=== PATIENT | male | born 1970 | race Caucasian/White ===

== ENCOUNTER 2021-08-29 13:57 | Outpatient (CLI) | payer BC, OTHER | END 2021-08-29 14:15 | LOC: SLEEP 13:57 | PROVIDERS: ATTEND Family Medicine | DX: G47.33 Obstructive sleep apnea (adult) (pediatric) (principal); I10 Essential (primary) hypertension | CPT/HCPCS: G0399 ==

== ENCOUNTER 2022-04-13 11:21 | Inpatient (IN) | payer OTHER ==
[2022-04-13] VITALS (11 sets, daily range): BP systolic 96–135; BP diastolic 58–86
[~2022-04-13] VITALS: Ht 165.1 cm; Wt 108.9 kg
[2022-04-13] MEDS ORDERED: fentaNYL INJ 100 MCG/2 ML AMP IVP ONE (11:45)
[2022-04-13] MEDS ORDERED: ONDANSETRON 4 MG/2 ML (SDV) Z0FRAN IVP ONE (11:45)
[2022-04-13] MEDS ORDERED: LACTATED RINGERS 1,000 ML IV ONE ×3 (11:45→18:41)
[2022-04-13 11:55] LABS: BASOPHILS # (AUTO) 0.1 10^3/uL (0.0-0.1); BASOPHILS % (AUTO) 0 % (0-10); EOSINOPHILS % (AUTO) 0 % (0-10); HEMATOCRIT 44 % (40-54); HEMOGLOBIN 14.8 g/dL (13.3-17.7); LYMPHOCYTES # (AUTO) 0.4 10^3/uL (1.0-4.0); LYMPHOCYTES % (AUTO) 2 % (12-44); MEAN CORPUSCULAR HEMOGLOBIN 32 pg (25-34); MEAN CORPUSCULAR HGB CONC 33 g/dL (32-36); MEAN CORPUSCULAR VOLUME 95 fL (80-99); MEAN PLATELET VOLUME 9.5 fL (9.0-12.2); MONOCYTES # (AUTO) 1.2 10^3/uL (0.0-1.0); MONOCYTES % (AUTO) 5 % (0-12); NEUTROPHILS # (AUTO) 21.8 10^3/uL (1.8-7.8); NEUTROPHILS % (AUTO) 93 % (42-75); PLATELET COUNT 353 10^3/uL (130-400); WHITE BLOOD COUNT 23.6 10^3/uL (4.3-11.0)
[2022-04-13 12:10] LABS: ALBUMIN 3.7 GM/DL (3.2-4.5); BAND NEUTROPHILS 0 %; BASOPHILS % (MANUAL) 0 %; BILIRUBIN,TOTAL 1.4 MG/DL (0.1-1.0); CALCIUM 9.6 MG/DL (8.5-10.1); CREATININE SERUM 1.42 MG/DL (0.60-1.30); EOSINOPHILS % (MANUAL) 0 %; LYMPHOCYTES % (MANUAL) 3 %; MAGNESIUM 2.6 MG/DL (1.6-2.4); MONOCYTES % (MANUAL) 7 %; NEUTROPHILS % (MANUAL) 90 %; POTASSIUM 4.1 MMOL/L (3.6-5.0); RBC MORPH NORMAL; TOTAL PROTEIN 7.4 GM/DL (6.4-8.2)
[2022-04-13 12:23] LABS: ERYTHROCYTE SEDIMENTATION RATE 21 MM/HR (0-30)
[2022-04-13] MEDS ORDERED: NS 100 ML (IVPB) BAG IV ONE (12:30)
[2022-04-13] MEDS ORDERED: IOHEXOL 350 MG/ML 100 ML (OMNIPAQUE 350) VIAL IV ONE (12:30)
[2022-04-13] MEDS ORDERED: HOLD METFORMIN - RECEIVED CONTRAST 20 ML VIAL IV SCH (12:30)
[2022-04-13] MEDS: CATHETER FLUSH 10 ML SYR IV PRN (12:48)
--- NOTE | 2022-04-13 13:02 | Diagnostic Imaging Report ---
PROCEDURE: CT abdomen and pelvis with contrast. TECHNIQUE: Multiple contiguous axial images were obtained through the abdomen and pelvis after administration of intravenous contrast. Auto Exposure Controls were utilized during the CT exam to meet ALARA standards for radiation dose reduction. All CT scans use one or more of the following dose optimizing techniques: automated exposure control, MA and/or KvP adjustment based on patient size and exam type or iterative reconstruction. INDICATION: Abdominal pain, Crohn's disease. FINDINGS: The lung bases are clear. The liver is unremarkable. The gallbladder is unremarkable. The portal vein is patent. The common duct is not dilated. The pancreas appears normal. T Spleen is not enlarged. The GE junction is unremarkable. The adrenals appear normal. The kidneys are unremarkable. The aorta and IVC appear normal. There is no mesenteric or retroperitoneal lymphadenopathy. There is thickening of the wall of the terminal ileum. There is no appreciable obstruction. There is colonic diverticulosis. There is no evidence of diverticulitis. There is a 4.5 cm mesenteric abscess in the right lower abdomen superior to the inflamed terminal ileum situated between small bowel loops. There is no retroperitoneal free air or free fluid. IMPRESSION: Right lower quadrant retroperitoneal abscess related to terminal ileitis. Uncomplicated diverticulosis of the colon. Dictated by: Dictated on workstation # [id number]
[2022-04-13] MEDS ORDERED: morphine INJ 10 MG/ML 1ML (SYR OR VIAL) IVP STA (13:07)
[2022-04-13] MEDS ORDERED: PIPERACILLIN SODIUM/TAZOBACTAM 4.5 GM in NS (IVPB) 100 ML IV ONE (13:15)
--- NOTE | 2022-04-13 13:41 | ED Abdominal Pain ---
General Chief Complaint: Abdominal/GI Problems Stated Complaint: CROHN'S FLAREUP Nursing Triage Note: PT AMB TO RM 6 W C/O CROHN'S FLARE UP X2 WEEKS, PT REPORTS ABD PAIN, N/V, CHILLS, AND DIAPHORESIS. PT A&OX4, LAST BM THIS AM. Source of Information: Patient Exam Limitations: No Limitations History of Present Illness Date Seen by Provider: Apr 13, 2022 Time Seen by Provider: 11:35 Initial Comments This 51-year-old gentleman with Crohn's disease presents to the emergency room with a "Crohn's flare" including abdominal pain, vomiting, and diarrhea for about the past 2 weeks. Shortly after onset he presented to the emergency room at [facility] where work-up was performed including CT scan. No emergent findings were reported to him and he was discharged home. He followed up with Dr. Shannon and was prescribed medication including prednisone. He has not had improvement. He has not had any fever. He reports diagnosis with Crohn's [place] [address] Connelly. He has had colonoscopies with Dr. Echols since then. He has a referral for medical management of Crohn's disease with Dr. Echols pending next year. He has not had consultation with a display and banner designer previously and has not been on any maintenance medications. He is afebrile but has a guarding on exam. He reports his stools have been watery and dark brown without allison bleeding. Urine has been dark and orange colored. Allergies and Home Medications Allergies Coded Allergies: No Known Drug Allergies (Unverified , 04/13/22) Patient Home Medication List Home Medication List Reviewed: Yes Review of Systems Review of Systems Constitutional: no symptoms reported EENTM: No Symptoms Reported Respiratory: No Symptoms Reported Cardiovascular: No Symptoms Reported Gastrointestinal: See HPI Genitourinary: See HPI Musculoskeletal: no symptoms reported Skin: no symptoms reported Psychiatric/Neurological: No Symptoms Reported Endocrine: No Symptoms Reported Hematologic/Lymphatic: No Symptoms Reported Past Tqxbhxj-Eewpmj-Yzkjmm Hx Patient Social History Tobacco Use?: No Use of E-Cig and/or Vaping dev: No Substance use?: No Alcohol Use?: Yes Alcohol Frequency: Once in a while Immunizations Up To Date Influenza Vaccine Up-to-Date: No; Not Current First/Initial COVID19 Vaccinat: 2020 Second COVID19 Vaccination Isak: 2020 Third COVID19 Vaccination Date: 2020 COVID19 Vaccine Customer Care Consultant: [place] Past Medical History Surgeries: Yes Abdominal (Colonoscopy, anal fistula) Respiratory: No Cardiac: No Neurological: No Reproductive Disorders: No Genitourinary: No Gastrointestinal: Yes Crohns Disease Musculoskeletal: No Endocrine: No HEENT: No Cancer: No Psychosocial: No Integumentary: No Physical Exam Vital Signs Vital Signs - First Documented 04/13/22 11:28 Temp 36.0 Pulse 92 Resp 20 B/P (MAP) 117/86 (96) Pulse Ox 96 O2 Delivery Room Air Capillary Refill : Less Than 3 Seconds Height/Weight/BMI Height: '" Weight: lbs. oz. kg; 39.00 BMI Method: General Appearance: WD/WN, mild distress HEENT: normal ENT inspection Neck: normal inspection Respiratory: lungs clear, normal breath sounds, no respiratory distress Cardiovascular: regular rate, rhythm, no edema, no murmur Gastrointestinal: abnormal bowel sounds (Decreased), distended, guarding, tenderness (Tenderness to percussion with guarding throughout, right greater than left) Extremities: normal inspection, no pedal edema Neurologic/Psychiatric: no motor/sensory deficits, alert, normal mood/affect, oriented x 3 Skin: normal color, warm/dry Focused Exam Lactate Level 04/13/22 13:40: Lactic Acid Level 0.99 Lactic Acid Level Laboratory Tests Test 04/13/22 13:40 Lactic Acid Level 0.99 MMOL/L (0.50-2.00) Progress/Results/Core Measures Results/Orders Lab Results Laboratory Tests Test 04/13/22 11:38 04/13/22 13:40 Range/Units White Blood Count 23.6 H 4.3-11.0 10^3/uL Red Blood Count 4.70 4.30-5.52 10^6/uL Hemoglobin 14.8 13.3-17.7 g/dL Hematocrit 44 40-54 % Mean Corpuscular Volume 95 80-99 fL Mean Corpuscular Hemoglobin 32 25-34 pg Mean Corpuscular Hemoglobin Concent 33 32-36 g/dL Red Cell Distribution Width 12.3 10.0-14.5 % Platelet Count 353 130-400 10^3/uL Mean Platelet Volume 9.5 9.0-12.2 fL Immature Granulocyte % (Auto) 1 % Neutrophils (%) (Auto) 93 H 42-75 % Lymphocytes (%) (Auto) 2 L 12-44 % Monocytes (%) (Auto) 5 0-12 % Eosinophils (%) (Auto) 0 0-10 % Basophils (%) (Auto) 0 0-10 % Neutrophils # (Auto) 21.8 H 1.8-7.8 10^3/uL Lymphocytes # (Auto) 0.4 L 1.0-4.0 10^3/uL Monocytes # (Auto) 1.2 H 0.0-1.0 10^3/uL Eosinophils # (Auto) 0.0 0.0-0.3 10^3/uL Basophils # (Auto) 0.1 0.0-0.1 10^3/uL Immature Granulocyte # (Auto) 0.2 H 0.0-0.1 10^3/uL Neutrophils % (Manual) 90 % Lymphocytes % (Manual) 3 % Monocytes % (Manual) 7 % Eosinophils % (Manual) 0 % Basophils % (Manual) 0 % Band Neutrophils 0 % Blood Morphology Comment NORMAL Erythrocyte Sedimentation Rate 21 0-30 MM/HR Prothrombin Time 15.7 H 12.2-14.7 SEC INR Comment 1.2 0.8-1.4 Activated Partial Thromboplast Time 48 H 24-35 SEC Sodium Level 139 135-145 MMOL/L Potassium Level 4.1 3.6-5.0 MMOL/L Chloride Level 100 98-107 MMOL/L Carbon Dioxide Level 24 21-32 MMOL/L Anion Gap 15 H 5-14 MMOL/L Blood Urea Nitrogen 31 H 7-18 MG/DL Creatinine 1.42 H 0.60-1.30 MG/DL Estimat Glomerular Filtration Rate 60 BUN/Creatinine Ratio 22 Glucose Level 159 H 70-105 MG/DL Calcium Level 9.6 8.5-10.1 MG/DL Corrected Calcium 9.8 8.5-10.1 MG/DL Magnesium Level 2.6 H 1.6-2.4 MG/DL Total Bilirubin 1.4 H 0.1-1.0 MG/DL Aspartate Amino Transf (AST/SGOT) 32 5-34 U/L Alanine Aminotransferase (ALT/SGPT) 65 H 0-55 U/L Alkaline Phosphatase 182 H 40-136 U/L C-Reactive Protein High Sensitivity 23.43 H 0.00-0.50 MG/DL Total Protein 7.4 6.4-8.2 GM/DL Albumin 3.7 3.2-4.5 GM/DL Lipase 6 L 8-78 U/L Lactic Acid Level 0.99 0.50-2.00 MMOL/L My Orders Orders - MICHAEL HUA MD Fentanyl Inj (Sublimaze Injection) (04/13/22 11:45) Cbc With Automated Diff (04/13/22 11:44) Comprehensive Metabolic Panel (04/13/22 11:44) Hs C Reactive Protein (04/13/22 11:44) Magnesium (04/13/22 11:44) Ua Culture If Indicated (04/13/22 11:44) Stool Culture (04/13/22 11:44) Fecal Wbc (04/13/22 11:44) Erythrocyte Sedimentation Rate (04/13/22 11:44) Fecal Occult Bedside (04/13/22 11:44) Ed Iv/Invasive Line Start (04/13/22 11:44) Lactated Ringers (Lr 1000 Ml Iv Solution (04/13/22 11:45) Ondansetron Injection (Zofran Injectio (04/13/22 11:45) Manual Differential (04/13/22 11:38) Ct Abdomen/Pelvis W (04/13/22 12:18) Iohexol Injection (Omnipaque 350 Mg/Ml 1 (04/13/22 12:30) Received Contrast (Hold Metformin- Contr (04/13/22 12:30) Ns (Ivpb) (Sodium Chloride 0.9% Ivpb Bag (04/13/22 12:30) Sodium Chloride Flush (Catheter Flush Sy (04/13/22 12:30) Blood Culture (04/13/22 12:50) Protime With Inr (04/13/22 12:50) Partial Thromboplastin Time (04/13/22 12:50) Vital Signs Adult Sepsis Patie Q15M (04/13/22 12:50) Remove Rings In Anticipation O (04/13/22 12:50) Lactic Acid Analyzer (04/13/22 12:50) Lipase (04/13/22 12:50) Morphine Injection (Morphine Injection (04/13/22 13:07) Piperacillin Sodium/Tazobactam (Zosyn Vi (04/13/22 13:15) Vancomycin Injection (Vancomycin Injecti (04/13/22 13:15) Lactated Ringers (Lr 1000 Ml Iv Solution (04/13/22 13:45) Promethazine Injection (Phenergan Injec (04/13/22 14:15) Pantoprazole Injection (Protonix Injecti (04/13/22 14:15) Medications Given in ED Current Medications Medications Dose Ordered Sig/Victorina Route Start Time Stop Time Status Last Admin Dose Admin Fentanyl Citrate 75 mcg ONCE ONCE IVP 04/13/22 11:45 04/13/22 11:47 DC 04/13/22 11:57 75 MCG Iohexol 100 ml ONCE ONCE IV 04/13/22 12:30 04/13/22 12:31 DC 04/13/22 12:48 80 ML Lactated Ringer's 1,000 ml @ 0 mls/hr Q0M ONCE IV 04/13/22 11:45 04/13/22 11:47 DC 04/13/22 11:56 0 MLS/HR Lactated Ringer's 1,000 ml @ 0 mls/hr Q0M ONCE IV 04/13/22 13:45 04/13/22 13:46 DC 04/13/22 13:43 0 MLS/HR Ondansetron HCl 8 mg ONCE ONCE IVP 04/13/22 11:45 04/13/22 11:47 DC 04/13/22 11:56 8 MG Pantoprazole 40 mg ONCE ONCE IV 04/13/22 14:15 04/13/22 14:16 DC 04/13/22 14:48 40 MG Piperacillin Sod/ Tazobactam Sod 4.5 gm/Sodium Chloride 100 ml @ 200 mls/hr ONCE ONCE IV 04/13/22 13:15 04/13/22 13:44 DC 04/13/22 14:19 200 MLS/HR Promethazine HCl 25 mg ONCE ONCE IVP 04/13/22 14:15 04/13/22 14:16 DC 04/13/22 14:48 25 MG Sodium Chloride 10 ml NEEDED PRN IV 04/13/22 12:30 04/13/22 12:48 10 ML Sodium Chloride 100 ml ONCE ONCE IV 04/13/22 12:30 04/13/22 12:31 DC 04/13/22 12:48 80 ML Vital Signs/I&O 04/13/22 11:28 Temp 36.0 Pulse 92 Resp 20 B/P (MAP) 117/86 (96) Pulse Ox 96 O2 Delivery Room Air Blood Pressure Mean: 96 Progress Progress Note #1: Time: 13:41 Progress Note Symptoms were treated with fentanyl, morphine, and Zofran. IV fluids were started. Patient had an acute appearing abdomen on exam. CT was obtained. Abscess was identified and Dr. Wylie was consulted. He will review the CT himself and render an opinion on how to proceed. In the meantime, blood cultures and lactic acid are being obtained prior to starting Zosyn and vancomycin. Systolic blood pressure has remained above 90 but is soft. A second liter of IV fluid is infusing. Progress Note #2: Time: 14:[address] Wylie has reviewed CT imaging and been to the emergency room to evaluate the patient. Plan is to take him directly to the OR to surgically address his abdominal abscess. I discussed CODE STATUS with the patient elects to be full code. Symptoms are being additionally treated with Phenergan and morphine. Diagnostic Imaging Diagonstic Imaging: CT Plain Films/CT/US/NM/MRI: abdomen, pelvis Comments CT abdomen pelvis viewed by me and report reviewed. See report below: NAME: MYLA HUNTLEY [facility] REC#: [id number] PT STATUS: REG ER : 1970 PHYSICIAN: MICHAEL HUA MD ADMIT DATE: 04/13/22/ER Draft Date of Exam:04/13/22 CT ABDOMEN/PELVIS W PROCEDURE: CT abdomen and pelvis with contrast. TECHNIQUE: Multiple contiguous axial images were obtained through the abdomen and pelvis after administration of intravenous contrast. Auto Exposure Controls were utilized during the CT exam to meet ALARA standards for radiation dose reduction. All CT scans use one or more of the following dose optimizing techniques: automated exposure control, MA and/or KvP adjustment based on patient size and exam type or iterative reconstruction. INDICATION: Abdominal pain, Crohn's disease. FINDINGS: The lung bases are clear. The liver is unremarkable. The gallbladder is unremarkable. The portal vein is patent. The common duct is not dilated. The pancreas appears normal. T Spleen is not enlarged. The GE junction is unremarkable. The adrenals appear normal. The kidneys are unremarkable. The aorta and IVC appear normal. There is no mesenteric or retroperitoneal lymphadenopathy. There is thickening of the wall of the terminal ileum. There is no appreciable obstruction. There is colonic diverticulosis. There is no evidence of diverticulitis. There is a 4.5 cm mesenteric abscess in the right lower abdomen superior to the inflamed terminal ileum situated between small bowel loops. There is no retroperitoneal free air or free fluid. IMPRESSION: Right lower quadrant retroperitoneal abscess related to terminal ileitis. Uncomplicated diverticulosis of the colon. Dictated on workstation # [id number] Dict: 04/13/22 1250 Trans: 04/13/22 1302 [id number] Interpreted by: SANDY GU MD Departure Communication (Admissions) Time/Spoke to Admitting Phy: 13:30 Dr. Wylie Impression Primary Impression: Abdominal abscess Additional Impressions: Sepsis Qualified Codes: A41.9 - Sepsis, unspecified organism Crohn's disease Qualified Codes: K50.914 - Crohn's disease, unspecified, with abscess Disposition: ADMITTED INPATIENT Condition: Stable Admissions Decision to Admit Reason: Admit from ER (General) Decision to Admit/Date: Apr 13, 2022 Time/Decision to Admit Time: 13:30 Departure-Patient Inst. Referrals: JAQUELINE SHANNON DO (PCP/Family) Primary Care Physician Copy Copies To 1: JAQUELINE SHANNON JOSHUA T MD Apr 13, 2022 13:41
[2022-04-13 14:01] LABS: INR 1.2 (0.8-1.4); PROTHROMBIN TIME PATIENT 15.7 SEC (12.2-14.7)
[2022-04-13] MEDS ORDERED: PANTOPRAZOLE 40 MG (PROTONIX) VIAL IV ONE (14:15)
[2022-04-13] MEDS ORDERED: PROMETHAZINE INJ 25 MG/ML (PHENERGAN) AMP IVP ONE ×2 (14:15→18:30)
[2022-04-13] MEDS: VANCOMYCIN INJECTION 1,000 MG in NS (IVPB) 250 ML IV SCH ×2 (14:48→15:51)
[2022-04-13] MEDS ORDERED: LIDOCAINE/EPI 1%-1:100,000 (XYLOCAINE) 10 ML ONE (14:58)
[2022-04-13] MEDS ORDERED: ROCURONIUM 10 MG/ML 5 ML SYRINGE IV ONE (15:04)
[2022-04-13] MEDS ORDERED: proPOfol 200 MG/20 ML (DIPRIVAN) VIAL IV ONE (15:04)
[2022-04-13] MEDS ORDERED: ONDANSETRON 4 MG/2 ML (SDV) Z0FRAN ONE (15:04)
[2022-04-13] MEDS ORDERED: SUCCINYLCHOLINE INJ 100 MG/5 ML SYR/VIAL ONE (15:04)
[2022-04-13] MEDS ORDERED: fentaNYL INJ 100 MCG/2 ML AMP ONE ×2 (15:04→16:45)
[2022-04-13] MEDS ORDERED: LIDOCAINE PF 2% 5 ML (XYLOCAINE) VIAL ONE (15:04)
[2022-04-13] MEDS ORDERED: MIDAZOLAM 2 MG/2 ML (VERSED) VIAL ONE (15:04)
--- NOTE | 2022-04-13 15:09 | Consultation - Surgery ---
DANA ZAPATA 04/13/22 1509: History of Present Illness History of Present Illness Patient Consulted On(katarina/time) 04/13/22 15:02 Date Seen by Provider: Apr 13, 2022 Time Seen by Provider: 15:03 Reason for Visit: Abdominal Pain History of Present Illness 51 year old male with a past medical history presented to [facility] ER with a chief complaint of abdominal pain believed to be related to a crohn's flare that had been on going for two weeks. Pain started in the right upper quadrant and has since radiation to RLQ and LLQ. Describes the pain as sharp and stabbing. Patient also endorses nausea, vomiting, chills, body aches, and alternating diarrhea/constipation. Patient has done two rounds of oral steroids from his PCP in an attempt to calm this flare-up down, with no success. Patient states that as of now, everything makes his pain worse; movement, eating, drinking. Patient was dx with Crohn's in 2002 and has had occasional flare-ups since then. Patient is not on any maintenance medications for Crohn's and does not see a provider for this issue due to cost of the medications. Patient states that this is the worst flare-up he has ever experienced. In the ER, patient underwent CT scan which showed a retroperitoneal abscess and terminal ileitis. Patient was started on vanc and zosyn, given an LR bolus, and started on pain control. Patient has not had anything to eat today. States his last fluid intake was before he came to the ER at ~1130. Allergies and Home Medications Allergies Coded Allergies: No Known Drug Allergies (Unverified , 04/13/22) Patient Home Medication List Home Medication List Reviewed: Yes Past Xsowshn-Kavdww-Uvhdrx Hx Patient Social History Smoking Status: Never a Smoker Type Used: Smokeless Tobacco Recent Hopitalizations: Yes (For same issue) Alcohol Use?: Yes Have you traveled recently?: No Surgeries History of Surgeries: Yes Surgeries: Abdominal (Colonoscopy, anal fistula), Appendectomy, Orthopedic (lumbar spine) Respiratory History of Respiratory Disorde: No Cardiovascular History of Cardiac Disorders: No Neurological History of Neurological Disord: No Reproductive System Hx Reproductive Disorders: No Genitourinary History of Genitourinary Disor: No Gastrointestinal History of Gastrointestinal Di: Yes Gastrointestinal Disorders: Crohns Disease Musculoskeletal History of Musculoskeletal Dis: No Endocrine History of Endocrine Disorders: No HEENT History of HEENT Disorders: No Cancer History of Cancer: No Psychosocial History of Psychiatric Problem: No Integumentary History of Skin or Integumenta: No Family Medical History Significant Family History: Heart Disease, Cancer, Diabetes Review of Systems-General Constitutional: chills, diaphoresis, dizziness Respiratory: cough, short of breath Cardiovascular: No chest pain, No edema, No palpitations Gastrointestinal: RUQ, RLQ, LLQ, abdominal pain, diarrhea, nausea, vomiting Genitourinary: No decreased output, No hematuria Psychiatric/Neurological: Headache Physical Exam-General Problems Physical Exam Vital Signs Vital Signs - First Documented 04/13/22 11:28 Temp 36.0 Pulse 92 Resp 20 B/P (MAP) 117/86 (96) Pulse Ox 96 O2 Delivery Room Air Capillary Refill : Less Than 3 Seconds General Appearance: WD/WN, mild distress HEENT: PERRL/EOMI Respiratory: chest non-tender, lungs clear, normal breath sounds, no respiratory distress, no accessory muscle use Cardiovascular: regular rate, rhythm, no murmur Gastrointestinal: distended, guarding (RLQ), tenderness (RUQ, RLQ, LLQ) Extremities: non-tender, no pedal edema Neurologic/Psychiatric: alert, normal mood/affect, oriented x 3 Skin: normal color, warm/dry Lymphatic: no adenopathy Data Review Labs Laboratory Tests 04/13/22 11:38: White Blood Count 23.6H, Red Blood Count 4.70, Hemoglobin 14.8, Hematocrit 44, Mean Corpuscular Volume 95, Mean Corpuscular Hemoglobin 32, Mean Corpuscular Hemoglobin Concent 33, Red Cell Distribution Width 12.3, Platelet Count 353, Mean Platelet Volume 9.5, Immature Granulocyte % (Auto) 1, Neutrophils (%) (Auto) 93H, Lymphocytes (%) (Auto) 2L, Monocytes (%) (Auto) 5, Eosinophils (%) (Auto) 0, Basophils (%) (Auto) 0, Neutrophils # (Auto) 21.8H, Lymphocytes # (Auto) 0.4L, Monocytes # (Auto) 1.2H, Eosinophils # (Auto) 0.0, Basophils # (Auto) 0.1, Immature Granulocyte # (Auto) 0.2H, Neutrophils % (Manual) 90, Lymphocytes % (Manual) 3, Monocytes % (Manual) 7, Eosinophils % (Manual) 0, Basophils % (Manual) 0, Band Neutrophils 0, Blood Morphology Comment NORMAL, Erythrocyte Sedimentation Rate 21, Prothrombin Time 15.7H, INR Comment 1.2, Activated Partial Thromboplast Time 48H, Sodium Level 139, Potassium Level 4.1, Chloride Level 100, Carbon Dioxide Level 24, Anion Gap 15H, Blood Urea Nitrogen 31H, Creatinine 1.42H, Estimat Glomerular Filtration Rate 60, BUN/Creatinine Ratio 22, Glucose Level 159H, Calcium Level 9.6, Corrected Calcium 9.8, Magnesium Level 2.6H, Total Bilirubin 1.4H, Aspartate Amino Transf (AST/SGOT) 32, Alanine Aminotransferase (ALT/SGPT) 65H, Alkaline Phosphatase 182H, C- Reactive Protein High Sensitivity 23.43H, Total Protein 7.4, Albumin 3.7, Lipase 6L 04/13/22 13:40: Lactic Acid Level 0.99 Assessment/Plan Assessment/Plan Assessment/Plan Sepsis Retroperitoneal abscess vs Bowel Perforation vs Infectious source Crohn's disease Elevated Creatinine Plan NPO IV Vanc and Zosyn IVF replacement w/ LR Pain control Discussed CT findings and possibility of surgery with patient. Patient is open to surgery and would just like to feel better. Discussed various different surgical techniques that may take place. Starting with diagnostic laparotomy and transitioning to laparoscopic or open repair. Patient understood all risks and adverse outcomes discussed and still wished to proceed with surgery. Planning on a Diagnostic Laparotomy with possible open and all other indicated procedures. ANGELO DUARTE DO 04/13/22 1602: History of Present Illness History of Present Illness Time Seen by Provider: 14:27 History of Present Illness Surgery asked to consult regarding intra-abdominal abscess. HPI per ED: This 51-year-old gentleman with Crohn's disease presents to the emergency room with a "Crohn's flare" including abdominal pain, vomiting, and diarrhea for about the past 2 weeks. Shortly after onset he presented to the emergency room at [place] where work-up was performed including CT scan. No emergent findings were reported to him and he was discharged home. He followed up with Dr. Shannon and was prescribed medication including prednisone. He has not had improvement. He has not had any fever. He reports diagnosis with Crohn's disease in [address] Connelly. He has had colonoscopies with Dr. Echols since then. He has a referral for medical management of Crohn's disease with Dr. Echols pending next year. He has not had consultation with a step finisher previously and has not been on any maintenance medications. He is afebrile but has a guarding on exam. He reports his stools have been watery and dark brown without allison bleeding. Urine has been dark and orange colored. Pt states he didn't have insurance and that is why he has never "treated his Crohn's". states usually he controls his diet and that controls the "flare-ups". Pain is 8 out of 10, was 10 out of 10 before pain meds. Allergies and Home Medications Allergies Coded Allergies: No Known Drug Allergies (Unverified , 04/13/22) Patient Home Medication List Home Medication List Reviewed: Yes Past Qsisdmq-Rvhlti-Mzesla Hx Patient Social History Smoking Status: Never a Smoker Type Used: Smokeless Tobacco Recent Hopitalizations: Yes (For same issue) Alcohol Use?: Yes Surgeries History of Surgeries: Yes Surgeries: Abdominal (Colonoscopy, anal fistula), Appendectomy, Orthopedic (lumbar spine) Respiratory History of Respiratory Disorde: No Cardiovascular History of Cardiac Disorders: No Neurological History of Neurological Disord: No Reproductive System Hx Reproductive Disorders: No Genitourinary History of Genitourinary Disor: No Gastrointestinal History of Gastrointestinal Di: Yes Gastrointestinal Disorders: Crohns Disease Musculoskeletal History of Musculoskeletal Dis: Yes Musculoskeletal Disorders: Degenerate Disk Disease, Back Injury Endocrine History of Endocrine Disorders: No HEENT History of HEENT Disorders: No Loss of Vision: Denies Hearing Impairment: Denies Cancer History of Cancer: No Psychosocial History of Psychiatric Problem: No Integumentary History of Skin or Integumenta: No Family Medical History Significant Family History: Heart Disease, Cancer, Diabetes Review of Systems-General Constitutional: chills, diaphoresis, dizziness EENTM: No blurred vision, No mouth swelling, No epistaxis Respiratory: cough, short of breath Cardiovascular: No chest pain, No edema, No palpitations Gastrointestinal: RUQ, RLQ, LLQ, abdominal pain, diarrhea, nausea, vomiting Genitourinary: No decreased output, No hematuria Musculoskeletal: back pain; No joint pain, No joint swelling Skin: No change in color, No change in hair/nails Psychiatric/Neurological: Denies Anxiety, Denies Depressed; Headache; Denies Seizure Physical Exam-General Problems Physical Exam General Appearance: WD/WN, moderate distress (secondary to pain) Eyes: Bilateral Eye PERRL, Bilateral Eye EOMI HEENT: pharynx normal; No scleral icterus (R), No scleral icterus (L); other (poor dentition) Neck: non-tender, supple Respiratory: chest non-tender, lungs clear, normal breath sounds, no respiratory distress, no accessory muscle use Cardiovascular: regular rate, rhythm, no murmur Gastrointestinal: distended, guarding (RLQ), tenderness (RUQ, RLQ, LLQ), hernia (small umbilical hernia) Extremities: non-tender, no pedal edema Neurologic/Psychiatric: alert, normal mood/affect, oriented x 3 Skin: normal color, warm/dry Lymphatic: no adenopathy (neck, axilla and groin) Data Review Radiology Date of Exam:04/13/22 CT ABDOMEN/PELVIS W PROCEDURE: CT abdomen and pelvis with contrast. TECHNIQUE: Multiple contiguous axial images were obtained through the abdomen and pelvis after administration of intravenous contrast. Auto Exposure Controls were utilized during the CT exam to meet ALARA standards for radiation dose reduction. All CT scans use one or more of the following dose optimizing techniques: automated exposure control, MA and/or KvP adjustment based on patient size and exam type or iterative reconstruction. INDICATION: Abdominal pain, Crohn's disease. FINDINGS: The lung bases are clear. The liver is unremarkable. The gallbladder is unremarkable. The portal vein is patent. The common duct is not dilated. The pancreas appears normal. T Spleen is not enlarged. The GE junction is unremarkable. The adrenals appear normal. The kidneys are unremarkable. The aorta and IVC appear normal. There is no mesenteric or retroperitoneal lymphadenopathy. There is thickening of the wall of the terminal ileum. There is no appreciable obstruction. There is colonic diverticulosis. There is no evidence of diverticulitis. There is a 4.5 cm mesenteric abscess in the right lower abdomen superior to the inflamed terminal ileum situated between small bowel loops. There is no retroperitoneal free air or free fluid. IMPRESSION: Right lower quadrant retroperitoneal abscess related to terminal ileitis. Uncomplicated diverticulosis of the colon. Dictated by: Dictated on workstation # [id number] Dict: 04/13/22 1250 Trans: 04/13/22 135 [id number] Interpreted by: SANDY GU MD Electronically signed by: SANDY GU MD 04/13/22 1358 Assessment/Plan Assessment/Plan Assessment/Plan Retroperitoneal abscess vs Bowel Perforation vs Infectious source Crohn's disease Elevated Creatinine Leukocytosis Plan NPO, IV Vanc and Zosyn, IVF replacement w/ LR, Pain control I reviewed the CT myself and discussed the case with ED physician. I had long discussion with pt and his regarding possibility of surgery; went over risks and complications not limited to pain, bleeding, infection, scar, damage to bowel and need for further procedure. Patient is open to surgery; because he has never had pain like this before and would just like to feel better. Discussed various different surgical possibility; would try least invasive to most invasive. IR drainage is not possible, will start diagnostic laparoscopy with possible laparotomy. We may be able to just drain or remove the abscess cavity, but may have to do small bowel resection or even SBR with removal of part of right colon. Patient understood all risks and adverse outcomes discussed and still wished to proceed with surgery. Will obtain consent. Supervisory-Addendum Brief Verification & Attestation Participated in pt care: history, MDM, physical Personally performed: exam, history, MDM, supervision of care Care discussed with: Medical Student Procedures: n/a Verification and Attestation of Medical Student E/M Service A medical student performed and documented this service. I then reviewed and verified all information documented by the medical student and made modific ations to such information, when appropriate. I personally performed a physical exam, medical decision making and then discussed any differences between the notes and made revisions as necessary to create one note. Angelo Duarte , 04/13/22 , 16:10 DANA ZAPATA Apr 13, 2022 15:09 ANGELO DUARTE DO Apr 13, 2022 16:02
[2022-04-13] MEDS: LACTATED RINGERS 1,000 ML IV PRN ×2 (16:06→18:46)
[2022-04-13] MEDS ORDERED: ROPIVACAINE 5MG/ML 30ML VIAL ONE (17:38)
[2022-04-13] MEDS ORDERED: NEOSTIGMINE (BLOXIVERZ ) 1 MG/1ML 10 ML VIAL ONE (17:46)
[2022-04-13] MEDS ORDERED: GLYCOPYRROLATE 0.2 MG/ML (ROBINUL) 2 ML VIAL ONE (17:46)
[2022-04-13] MEDS ORDERED: morphine INJ 10 MG/ML 1ML (SYR OR VIAL) ONE (17:52)
--- NOTE | 2022-04-13 18:03 | Progress Note-Post Operative ---
Post-Operative Progess Note Surgeon (s)/Processing Engineer (s) Surgeon ANGELO DUARTE DO Processing Engineer: Keena Pre-Operative Diagnosis Intra-abdominal abscess Post-Operative Diagnosis same with small bowel entrapment Procedure & Operative Findings Date of Procedure 04/13/22 Procedure Performed/Findings Diagnostic Laparoscopy, Laparotomy with small bowel resection and Ileo-Colonic anastomosis Anesthesia Type GET Estimated Blood Loss Estimated blood loss (mL): 300ml Specimens/Packing Specimens Removed abscess and small bowel ANGELO DUARTE DO Apr 13, 2022 18:03
[2022-04-13] MEDS ORDERED: SEVOFLURANE (ULTANE) 15 ML INHAL SOLN ONE (18:04)
[2022-04-13] MEDS ORDERED: RT-ALBUTEROL SULF 2.5 MG/3 ML PRE-MIX VIAL ONE (18:22)
[2022-04-13] MEDS ORDERED: RT-ALBUTEROL SULF 2.5 MG/3 ML PRE-MIX VIAL INH ONE (18:30)
[2022-04-13] MEDS ORDERED: morphine INJ 10 MG/ML 1ML (SYR OR VIAL) IVP ONE (18:30)
[2022-04-13] MEDS ORDERED: HYDROmorphone 2 MG/ML VIAL (DILAUDID) IV ONE (18:30)
[2022-04-13] MEDS ORDERED: ONDANSETRON 4 MG/2 ML (SDV) Z0FRAN IVP PRN (18:30)
[2022-04-13] MEDS: LACTATED RINGERS 1,000 ML IV SCH ×2 (18:48→20:07)
[2022-04-13] MEDS ORDERED: RT-ALBUTEROL SULF 2.5 MG/3 ML PRE-MIX VIAL INH PRN (20:00)
[2022-04-13] MEDS: PIPERACILLIN SODIUM/TAZOBACTAM 4.5 GM in NS (IVPB) 100 ML IV SCH (20:02)
[2022-04-13] MEDS ORDERED: ACETAMINOPHEN 325 MG TABLET PO PRN (20:30)
[2022-04-13] MEDS ORDERED: IBUPROFEN 600 MG (MOTRIN) TAB PO ONE (20:46)
[2022-04-13] MEDS: IBUPROFEN 600 MG (MOTRIN) TAB PO PRN (21:15)
[2022-04-14] VITALS (9 sets, daily range): BP systolic 96–145; BP diastolic 54–82
[2022-04-14] MEDS: HYDROcodone/APAP 5 MG/325 MG (LORTAB) TAB PO PRN ×6 (00:15→22:55)
[2022-04-14] MEDS: ONDANSETRON 4 MG/2 ML (SDV) Z0FRAN IVP PRN (00:15)
[2022-04-14] MEDS: LACTATED RINGERS 1,000 ML IV SCH ×3 (02:26→19:04)
[2022-04-14] MEDS: PIPERACILLIN SODIUM/TAZOBACTAM 4.5 GM in NS (IVPB) 100 ML IV SCH ×3 (03:18→21:15)
[2022-04-14] MEDS ORDERED: RT-ALBUTEROL SULF 2.5 MG/3 ML PRE-MIX VIAL INH ONE (07:00)
--- NOTE | 2022-04-14 07:05 | Anesthesia-General Post-Op ---
General Patient Condition Mental Status/LOC: Same as Preop Cardiovascular: Satisfactory Nausea/Vomiting: Absent Respiratory: Satisfactory Pain: Controlled Complications: Absent Post Op Complications Complications None Follow Up Care/Instructions Patient Instructions None needed. Anesthesia/Patient Condition Patient Condition Patient is doing well, no complaints, stable vital signs, no apparent adverse anesthesia problems. No complications reported per nursing. MAYCO MCKEON CRNA Apr 14, 2022 07:05
[2022-04-14] MEDS: PANTOPRAZOLE 40 MG (PROTONIX) VIAL IVP SCH (08:45)
--- NOTE | 2022-04-14 08:58 | Progress Note - Surgery ---
MARTHARAMSES Alfredo 04/14/22 0858: Subjective Date Seen by a Provider: Apr 14, 2022 Time Seen by a Provider: 07:50 Subjective/Events-last exam Pt is 51 yo M on POD day 1 from open laparotomy with abscess and partial small bowel resection and ilieocolonic anastomosis. Pt is calmly resting in bed this morning, and in no acute distress. States he is doing okay, except for his abdomen hurting primarily at the incision site. Dressing has some fluid seeping through this morning. State he is current having 10/10 pain. Pt has ron catheter in place with 75mL output. Pt states it was drained earlier this morning. Pt is on clear liquid diet and has been getting plenty of fluids. Has not had a bowel movement since procedure. Pt is not ambulating at this time. He is wearing nasal cannula 2L O2 and is not having difficulty breathing. Has not been using IS and did not know it was on the table next to him. States he thinks he had a fever last night and was given ice packs which he does not need at this time. Review of Systems General: No Chills, No Night Sweats; Appetite (drinking plenty of fluids) HEENT: No Head Aches, No Visual Changes Pulmonary: No Dyspnea, No Cough Cardiovascular: No: Chest Pain, Palpitations, Edema Gastrointestinal: Abdominal Pain (Pain primarily at incision site); No: Nausea, Vomiting Genitourinary: No Dysuria, No Hematuria Musculoskeletal: No: shoulder pain, leg pain Neurological: No: Weakness, Numbness Focused Exam Lactate Level 04/13/22 13:40: Lactic Acid Level 0.99 Objective Exam Vital Signs Date Time Temp Pulse Resp B/P (MAP) Pulse Ox O2 Delivery O2 Flow Rate FiO2 04/14/22 07:57 36.3 56 18 102/66 (78) 97 Nasal Cannula 2.00 04/14/22 07:13 36.6 77 98 04/14/22 07:11 98 Nasal Cannula 2.00 04/14/22 05:55 77 100/54 (69) 04/14/22 04:01 36.6 62 20 96/60 (72) 97 Nasal Cannula 2.00 04/14/22 00:16 92 16 100/62 (75) 95 Nasal Cannula 2.00 04/13/22 23:47 37.0 89 18 96/65 (75) 95 OxyMask 2.00 04/13/22 20:15 95 OxyMask 3.00 04/13/22 20:10 39.0 122 16 102/58 (73) 93 OxyMask 2.00 04/13/22 20:00 94 OxyMask 2.00 04/13/22 19:46 36.8 117 21 107/67 (80) 95 OxyMask 2.00 04/13/22 19:36 36.8 87 98 04/13/22 19:05 36.8 20 122/72 (89) 98 OxyMask 2.00 04/13/22 19:05 OxyMask 2.00 04/13/22 19:00 20 118/68 (85) 97 OxyMask 2.00 04/13/22 18:52 OxyMask 2.00 04/13/22 18:50 18 115/66 (82) 95 OxyMask 2.00 04/13/22 18:48 OxyMask 2.00 04/13/22 18:40 18 117/65 (82) 97 OxyMask 4.00 04/13/22 18:36 OxyMask 6.00 04/13/22 18:34 OxyMask 6.00 04/13/22 18:30 18 123/76 (92) 96 OxyMask 6.00 04/13/22 18:26 99 OxyMask 6.00 04/13/22 18:20 20 132/83 (99) 100 OxyMask 6.00 04/13/22 18:20 OxyMask 6.00 04/13/22 18:10 37.2 22 135/86 (102) 98 OxyMask 6.00 04/13/22 18:10 OxyMask 6.00 04/13/22 15:55 67 18 116/78 99 Room Air 04/13/22 11:28 36.0 92 20 117/86 (96) 96 Room Air I & O 04/14/22 07:00 Intake Total 4270 ml Output Total 1125 ml Balance 3145 ml Capillary Refill : Less Than 3 Seconds General Appearance: No Apparent Distress, Obese HEENT: PERRL/EOMI; No Scleral Icterus (L), No Scleral Icterus (R) Neck: Non Tender, Supple Respiratory: Chest Non Tender, No Accessory Muscle Use, No Respiratory Distress Cardiovascular: Regular Rate, Rhythm, No Murmur, Normal Peripheral Pulses Peripheral Pulses: 2+ Dorsalis Pedis (R), 2+ Left Dors-Pedis (L), 2+ Radial Pulses (R), 2+ Radial Pulses (L) Gastrointestinal: distended, guarding (midline), tenderness (RUQ, but primarily at incision site), hernia (small umbilical hernia) Extremity: Non Tender, No Calf Tenderness Neurologic/Psychiatric: Alert, Oriented x3, bond analyst II-XII Norm as Tested Skin: Normal Color, Warm/Dry Results Lab Laboratory Tests 04/13/22 11:38: White Blood Count 23.6H, Red Blood Count 4.70, Hemoglobin 14.8, Hematocrit 44, Mean Corpuscular Volume 95, Mean Corpuscular Hemoglobin 32, Mean Corpuscular Hemoglobin Concent 33, Red Cell Distribution Width 12.3, Platelet Count 353, Mean Platelet Volume 9.5, Immature Granulocyte % (Auto) 1, Neutrophils (%) (Auto) 93H, Lymphocytes (%) (Auto) 2L, Monocytes (%) (Auto) 5, Eosinophils (%) (Auto) 0, Basophils (%) (Auto) 0, Neutrophils # (Auto) 21.8H, Lymphocytes # (Auto) 0.4L, Monocytes # (Auto) 1.2H, Eosinophils # (Auto) 0.0, Basophils # (Auto) 0.1, Immature Granulocyte # (Auto) 0.2H, Neutrophils % (Manual) 90, Lymphocytes % (Manual) 3, Monocytes % (Manual) 7, Eosinophils % (Manual) 0, Basophils % (Manual) 0, Band Neutrophils 0, Blood Morphology Comment NORMAL, Erythrocyte Sedimentation Rate 21, Prothrombin Time 15.7H, INR Comment 1.2, Activated Partial Thromboplast Time 48H, Sodium Level 139, Potassium Level 4.1, Chloride Level 100, Carbon Dioxide Level 24, Anion Gap 15H, Blood Urea Nitrogen 31H, Creatinine 1.42H, Estimat Glomerular Filtration Rate 60, BUN/Creatinine Ratio 22, Glucose Level 159H, Calcium Level 9.6, Corrected Calcium 9.8, Magnesium Level 2.6H, Total Bilirubin 1.4H, Aspartate Amino Transf (AST/SGOT) 32, Alanine Aminotransferase (ALT/SGPT) 65H, Alkaline Phosphatase 182H, C- Reactive Protein High Sensitivity 23.43H, Total Protein 7.4, Albumin 3.7, Lipase 6L 04/13/22 13:40: Lactic Acid Level 0.99 Assessment/Plan Assessment/Plan Assessment/Plan Retroperitoneal abscess vs Bowel Perforation vs Infectious source Crohn's disease Elevated Creatinine Leukocytosis Plan Clear liquid diet, IV Vanc and Zosyn, IVF replacement w/ LR, Pain control ANGELO DUARTE DO 04/14/22 1308: Subjective Time Seen by a Provider: :22 Subjective/Events-last exam Pt seen and examined, resting in bed but looks like he is trying not to move. States pain is 10 out of 10 and oral pain meds not helping much at all. Tolerating minimal clears, but is getting up to go to bathroom. Review of Systems General: No Chills, No Night Sweats Pulmonary: No Dyspnea, No Cough Cardiovascular: No: Chest Pain, Palpitations Gastrointestinal: Abdominal Pain (Pain primarily at incision site); No: Nausea, Vomiting Objective Exam General Appearance: Anxious, Obese Respiratory: Chest Non Tender, Lungs Clear, Normal Breath Sounds, No Accessory Muscle Use, No Respiratory Distress Cardiovascular: Regular Rate, Rhythm Gastrointestinal: distended, guarding (midline), tenderness (RUQ, but primarily at incision site) Extremity: No Calf Tenderness Neurologic/Psychiatric: Alert, Oriented x3 Assessment/Plan Assessment/Plan Assessment/Plan S/P Ex lap with SBR and Ileo-cecal anastomosis for Retroperitoneal abscess probable Bowel Perforation POD#1 Crohn's disease Elevated Creatinine Leukocytosis Plan Encourage increased PO intake, contineu Zosyn, IVF, Pain control - will add IV meds. Pt encouraged to ambulate more and use IS Supervisory-Addendum Brief Verification & Attestation Participated in pt care: history, MDM, physical Personally performed: exam, history, MDM, supervision of care Care discussed with: Medical Student Procedures: n/a Verification and Attestation of Medical Student E/M Service A medical student performed and documented this service. I then reviewed and verified all information documented by the medical student and made modifications to such information, when appropriate. I personally performed a physical exam, medical decision making and then discussed any differences between the notes and made revisions as necessary to create one note. Angelo Duarte , 04/14/22 , 13:07 RAMSES THOMAS Apr 14, 2022 08:58 ANGELO DUARTE DO Apr 14, 2022 13:08
[2022-04-14] MEDS ORDERED: ACET-2267 PO (12:43)
[2022-04-14] MEDS ORDERED: FAMO20TA5 PO (12:43)
[2022-04-14] MEDS ORDERED: IBUP-2185 PO (12:43)
[2022-04-14] MEDS: morphine INJ 4 MG/ML 1 ML (VIAL/SYRINGE) IVP PRN ×3 (14:01→18:59)
--- NOTE | 2022-04-14 16:19 | OPERATIVE REPORT ---
DATE OF SERVICE: 04/13/2022 PREOPERATIVE DIAGNOSIS: Intra-abdominal abscess. POSTOPERATIVE DIAGNOSIS: Intraabdominal abscess, pending pathology. PROCEDURES PERFORMED: Diagnostic laparoscopy switched to laparotomy with small bowel resection and ileocolonic or ileocecal anastomosis. SURGEON: Neo Wylie DO. COASTAL/HARBOR DEFENSE OFFICER: Dr. Brink. TYPE OF ANESTHESIA: General endotracheal tube. SPECIMENS: Abscess and portion of small bowel. ESTIMATED BLOOD LOSS: Approximately 300 mL. FLUIDS: Per anesthesia. POSTOPERATIVE CONDITION: Stable. INDICATIONS FOR PROCEDURE: The patient is a 51-year-old male, who had pain in the right lower quadrant and radiating to the back of the abdomen. He has a history of Crohn's, had a CT, which showed an intra-abdominal abscess. FINDINGS: The patient had intra-abdominal abscess with a small bowel closely adhered or attached to this area, needed to be removed. DESCRIPTION OF PROCEDURE: After informed consent was obtained, the patient was brought to the operating room and placed on the table in the supine position. He was sterilely prepped and draped in normal fashion. Local lidocaine was used to infiltrate the skin above the umbilicus, made an incision with an 11 blade, carried down through the skin into the subcutaneous tissue, then deepened down through the subcutaneous tissue with Bovie electrocautery down to the fascia. Fascia incised with electrocautery, bluntly into the abdomen swept finger and placed 11 mm trocar port under direct visualization, creating pneumoperitoneum, could see inflammation in the right lower quadrant. This was noted, placed another 5 mm port in the midline just above the suprapubic area. Using local lidocaine, an 11 blade for stab incision, a VersaStep system, all done under direct visualization, broke the adhesions up a little bit to pull this apart. It was then attached to the abdominal wall, used a LigaSure to come across this attachment, clamping, coagulating and transecting in this fashion, freeing this up, attempted to move this around, it was very stuck and at this point, I elected to open, increase the incision from the supraumbilical incision down to the incision on the lower portion of the abdomen. Using Bovie electrocautery down through the skin into the subcutaneous tissue, then deepened down to subcutaneous tissue to the fascia. Fascia incised protected the intestines from my hand, did have to go up a little bit more superior as well to get access, began trying to dissect this out. It was very stuck down, had to take the adhesions down with blunt dissection as well as Bovie electrocautery, freeing this up, trying to free up the small intestine and trying to determine where it was attached. The mesentery of the small intestine was very stuck down into the pelvis. While freeing this up, did get a little bit of bleeding from the mesentery. At this point, I elected to go distal to this abscess and entrapped a small bowel, made a defect in the mesentery bluntly and then placed a DELORES-75 across clamping and then holding for 30 seconds, then transecting, went above this mass and then tangled small bowel to an area that was clean and did another defect in the mesentery with Bovie electrocautery as well as blunt dissection. I came across another DELORES-75 clamp and then transected this and then started taking this whole area out en bloc using the LigaSure to come across the mesentery, clamping, coagulating and transecting and in a stepwise fashion removing this abscess that we did not get into and the entangled and entrapped small bowel. This was removed, passed off table. This also stopped the bleeding from the mesentery. At this time, we then copiously irrigated with warm normal saline and suctioned this out, freed up the ascending colon along the pericolic gutter by using Bovie electrocautery to free this up and then gently pulled this into the center. I then elected to do an ileocecal anastomosis, made a small defect in the antimesenteric border of the small bowel and then a defect in the tinea with the Bovie electrocautery, placed one side of the DELORES-73, either side of these clamped together. They were creating a [id number] functional end-to-end anastomosis of the ileum and the cecum, fired this, then grasped the edges with Babcocks and then used a TA60 to come across and close this hole. There was one small opening that was missed. This was sutured closed with 3-0 Vicryl, two [id number] and then tied these around a piece of omentum as a patch, copiously irrigated. There was no leakage after this, changed gloves, irrigated some more, looked around, suctioned this out. There was no spillage of any fecal material into the abdominal cavity. There was no bleeding at this point. Dropped this back down into the abdomen and then placed the omentum over the top of this and then elected to close the incision with a #1 double stranded PDS suture running from the inferior portion to the superior portion, tied to itself. Then, we irrigated the incision with saline and then closed the skin with cm. Area was clean and dry, dressing placed. The patient tolerated the procedure. He was transferred to recovery room in stable condition. Sponge and needle counts were correct at the end of the case. Job ID: [id number] DocumentID: [id number] Dictated Date: 04/14/2022 10:11:05 Vb Net Programmer Date: 04/14/2022 16:17:00 Dictated By: DO ZAHRAA SHAVER
[2022-04-14] MEDS ORDERED: ENOXAPARIN 40 MG/0.4 ML (LOVENOX) SYR SC SCH (19:30)
[2022-04-14] MEDS: IBUPROFEN 600 MG (MOTRIN) TAB PO PRN (21:21)
[2022-04-14] MEDS: CATHETER FLUSH 10 ML SYR IV PRN (21:22)
[2022-04-15 03:33] VITALS: BP 111/66
[2022-04-15] MEDS: morphine INJ 4 MG/ML 1 ML (VIAL/SYRINGE) IVP PRN ×2 (06:31→08:59)
[2022-04-15] MEDS: PIPERACILLIN SODIUM/TAZOBACTAM 4.5 GM in NS (IVPB) 100 ML IV SCH ×3 (06:33→19:53)
[2022-04-15 07:48] VITALS: BP 135/80
--- NOTE | 2022-04-15 07:51 | Progress Note - Surgery ---
MARTHARAMSES Alfredo 04/15/22 0751: Subjective Date Seen by a Provider: Apr 15, 2022 Time Seen by a Provider: 07:18 Subjective/Events-last exam Pt is 51 yo M on POD#2 from small bowel resection. He s sitting comfortably in bed this morning in no acute distress. States his pain is better controlled today, rating it at 8/10. He has gotten up multiple times from bed to use the bathroom and walking about the room. States he has some shortness of breath on exertion. He is using his incentive spirometer. Is on room air. His ron catheter is out. States he has been voiding but not had a bowel movement. As of this morning, he has not passed gas. Pt is tolerating clear liquid diet of water and Sprite. States drinking Powerade is currently too much for him. Pt's wound dressing has blood and serosanginous fluid partially leaking through. However, dressing is still dry and intact. Nurse marked borders of fluid on dressing this morning. Review of Systems General: Chills, Fatigue, Other (diaphoresis (after ambulation)) HEENT: No Head Aches, No Visual Changes Pulmonary: Dyspnea (on exertion); No Cough Cardiovascular: No: Chest Pain, Palpitations Gastrointestinal: Abdominal Pain (pain at ); No: Nausea, Vomiting Genitourinary: No Dysuria; Hematuria (pt thinks this is from ron removal) Musculoskeletal: back pain (pt thinks this is from laying in bed); No: leg pain Neurological: Other (pt states he gets shaky which is part of his Crohn's); No: Weakness, Numbness Focused Exam Lactate Level 04/13/22 13:40: Lactic Acid Level 0.99 Objective Exam Vital Signs Date Time Temp Pulse Resp B/P (MAP) Pulse Ox O2 Delivery O2 Flow Rate FiO2 04/15/22 03:33 36.4 75 20 111/66 (81) 95 Room Air 04/14/22 23:30 36.1 80 20 137/81 (99) 93 Room Air 04/14/22 20:20 37.6 88 20 145/82 (103) 93 Room Air 04/14/22 20:00 95 Nasal Cannula 2.00 04/14/22 16:45 36.7 75 18 115/78 (90) 95 Room Air 04/14/22 12:07 36.6 64 18 102/62 (75) 94 Room Air 04/14/22 08:00 97 Nasal Cannula 2.00 04/14/22 07:57 36.3 56 18 102/66 (78) 97 Nasal Cannula 2.00 I & O 04/15/22 06:59 Intake Total 2480 ml Output Total 700 ml Balance 1780 ml Capillary Refill : Less Than 3 Seconds General Appearance: No Apparent Distress, Anxious, Obese HEENT: PERRL/EOMI, Moist Mucous Membranes; No Scleral Icterus (L), No Scleral Icterus (R) Neck: Non Tender, Supple Respiratory: Chest Non Tender, Lungs Clear, Normal Breath Sounds, No Accessory Muscle Use, No Respiratory Distress Cardiovascular: Regular Rate, Rhythm, No Murmur Peripheral Pulses: 2+ Dorsalis Pedis (R), 2+ Left Dors-Pedis (L), 2+ Radial Pulses (R), 2+ Radial Pulses (L) Gastrointestinal: distended, guarding (midline), tenderness (RUQ, but primarily at incision site) Extremity: Non Tender, No Calf Tenderness Neurologic/Psychiatric: Alert, Oriented x3 Skin: Normal Color, Warm/Dry Results Lab Microbiology 04/13/22 Blood Culture - Preliminary, Resulted No growth Assessment/Plan Assessment/Plan Assessment/Plan S/P Ex lap with SBR and Ileo-cecal anastomosis for Retroperitoneal abscess probable Bowel Perforation POD#2 Crohn's disease Elevated Creatinine Leukocytosis Plan Encourage increased PO intake, contineu Zosyn, IVF, Pain control - will add IV meds. Pt encouraged to ambulate more and use IS ANGELO DUARTE DO 04/16/22 1411: Subjective Time Seen by a Provider: 14:10 Subjective/Events-last exam Pt seen and examined, pain was slightly improved. Denied flatus or BM, tolerating clears. Review of Systems General: Chills, Fatigue Pulmonary: Dyspnea (on exertion); No Cough Cardiovascular: No: Chest Pain, Palpitations Gastrointestinal: Abdominal Pain (pain at ); No: Nausea, Vomiting Objective Exam General Appearance: No Apparent Distress, Anxious HEENT: Moist Mucous Membranes Respiratory: Lungs Clear, Normal Breath Sounds, No Accessory Muscle Use, No Respiratory Distress Cardiovascular: Regular Rate, Rhythm, No Murmur Gastrointestinal: soft, distended, guarding (midline), tenderness (incision c/d/i), other Assessment/Plan Assessment/Plan Assessment/Plan S/P Ex lap with SBR and Ileo-cecal anastomosis for Retroperitoneal abscess probable Bowel Perforation POD#2 Crohn's disease Elevated Creatinine Leukocytosis Plan Encourage increased PO intake, contineu Zosyn, IVF, Pain control - will add IV meds. Pt encouraged to ambulate more and use IS Supervisory-Addendum Brief Verification & Attestation Participated in pt care: history, MDM, physical Personally performed: exam, history, MDM, supervision of care Care discussed with: Medical Student Procedures: n/a Verification and Attestation of Medical Student E/M Service A medical student performed and documented this service. I then reviewed and verified all information documented by the medical student and made modifications to such information, when appropriate. I personally performed a physical exam, medical decision making and then discussed any differences between the notes and made revisions as necessary to create one note. Angelo Duarte , 04/16/22 , 14:11 RAMSES THOMAS Apr 15, 2022 07:51 ANGELO DUARTE DO Apr 16, 2022 14:11
[2022-04-15] MEDS: PANTOPRAZOLE 40 MG (PROTONIX) VIAL IVP SCH (08:54)
[2022-04-15] MEDS: HYDROcodone/APAP 5 MG/325 MG (LORTAB) TAB PO PRN ×3 (08:57→21:49)
[2022-04-15] MEDS: ENOXAPARIN 40 MG/0.4 ML (LOVENOX) SYR SC SCH ×2 (08:58→20:00)
[2022-04-15] MEDS: LACTATED RINGERS 1,000 ML IV SCH ×2 (10:37→18:58)
[2022-04-15 11:52] VITALS: BP 127/67
[2022-04-15 16:00] VITALS: BP 130/83
[2022-04-15] MEDS: ONDANSETRON 4 MG/2 ML (SDV) Z0FRAN IVP PRN (17:19)
[2022-04-15 20:08] VITALS: BP 143/82
[2022-04-16] VITALS (7 sets, daily range): BP systolic 125–157; BP diastolic 74–92
[2022-04-16] MEDS: LACTATED RINGERS 1,000 ML IV SCH ×4 (00:21→23:36)
[2022-04-16] MEDS: ONDANSETRON 4 MG/2 ML (SDV) Z0FRAN IVP PRN (04:17)
[2022-04-16] MEDS: PIPERACILLIN SODIUM/TAZOBACTAM 4.5 GM in NS (IVPB) 100 ML IV SCH ×3 (04:18→19:50)
[2022-04-16] MEDS: HYDROcodone/APAP 5 MG/325 MG (LORTAB) TAB PO PRN (06:19)
--- NOTE | 2022-04-16 07:16 | Progress Note - Surgery ---
RAMSES THOMAS 04/16/22 0715: Subjective Date Seen by a Provider: Apr 16, 2022 Time Seen by a Provider: 07:20 Subjective/Events-last exam Pt is 51 yo M on POD#3 from small bowel resection. This morning patient is sitting up in bed and his having obvious discomfort. States that last night he was coughing and producing lots of saliva and phlegm which lead to a vomiting fit which pt notes lasted about 6 hours. He states he is having pain and discomfort everywhere, but primarily in his abdomen. Rates pain as 10/10. He has been walking the hallways and using incentive spirometer. Pt has not had bowel movement or passed gas. Has been voiding dark urine multiple times since yesterday. Pt has now moved from clear liquid diet to NPO this morning. Surgical site dressing was changed yesterday at 9am and today is blood tinged again. Dressing is intact and clean. Review of Systems General: Chills, Fatigue, Other (Diaphoresis) HEENT: No Head Aches, No Visual Changes Pulmonary: Dyspnea, Cough Cardiovascular: Lt Headedness (pt believe this is from the pain and vomiting); No: Chest Pain, Palpitations Gastrointestinal: Nausea, Vomiting, Abdominal Pain (in both LUQ and primarily centralized to incision site on midline) Genitourinary: No Dysuria, No Hematuria Musculoskeletal: arm pain (pt states he is hurting everywhere today), back pain (pt states he is hurting everywhere today) Neurological: No: Weakness, Numbness Focused Exam Lactate Level 04/13/22 13:40: Lactic Acid Level 0.99 Objective Exam Vital Signs Date Time Temp Pulse Resp B/P (MAP) Pulse Ox O2 Delivery O2 Flow Rate FiO2 04/16/22 04:32 36.8 72 22 149/88 (108) 95 Room Air 04/16/22 00:00 37.0 68 20 125/74 (91) 95 Room Air 04/15/22 20:08 36.5 70 16 143/82 (102) 95 Room Air 04/15/22 20:00 96 Room Air 04/15/22 19:35 96 Nasal Cannula 2.00 04/15/22 16:00 36.1 110 18 130/83 (99) 95 Room Air 04/15/22 11:52 36.6 60 18 127/67 (87) 94 Room Air 04/15/22 08:00 95 Room Air 04/15/22 07:48 36.7 87 18 135/80 (98) 95 I & O 04/16/22 07:00 Intake Total 1830 ml Balance 1830 ml Capillary Refill : Less Than 3 Seconds General Appearance: Anxious, Mild Distress, Obese HEENT: PERRL/EOMI; No Photophobia, No Scleral Icterus (L), No Scleral Icterus (R) Neck: Non Tender, Supple Respiratory: Chest Non Tender, Lungs Clear, Normal Breath Sounds, No Accessory Muscle Use, No Respiratory Distress Cardiovascular: Regular Rate, Rhythm, No Murmur Peripheral Pulses: 2+ Dorsalis Pedis (R), 2+ Left Dors-Pedis (L), 2+ Radial Pulses (R), 2+ Radial Pulses (L) Gastrointestinal: distended, guarding (midline), tenderness (RUQ, but primarily at incision site) Extremity: Non Tender, No Calf Tenderness; No Swelling Neurologic/Psychiatric: Alert, Oriented x3, first mate II-XII Norm as Tested Skin: Normal Color, Damp, Diaphoresis Results Lab Microbiology 04/13/22 Blood Culture - Preliminary, Resulted Streptococcus intermedius Testing In Progress Assessment/Plan Assessment/Plan Assessment/Plan S/P Ex lap with SBR and Ileo-cecal anastomosis for Retroperitoneal abscess probable Bowel Perforation POD#3 Post-operative ileus Bacteremia - Strep viridans Crohn's disease Elevated Creatinine Leukocytosis Plan NPO, continue Zosyn, IVF, Pain control - will add IV meds. Pt encouraged to ambulate more and use IS NEO WYLIE DO 04/16/22 1415: Subjective Time Seen by a Provider: 09:39 Subjective/Events-last exam Pt seen and examined, pain has increased since yesterday and he states he is more bloated. He also has long period of emesis last night, still no flatus or BM. He was made npo, but would like to try a coffee to see if that helps with B M. Review of Systems General: Fatigue Pulmonary: Dyspnea, Cough Cardiovascular: No: Chest Pain, Palpitations Gastrointestinal: Nausea, Vomiting, Abdominal Pain (in both LUQ and primarily centralized to incision site on midline) Objective Exam General Appearance: Anxious, Mild Distress, Obese Respiratory: Chest Non Tender, Lungs Clear, Normal Breath Sounds, No Accessory Muscle Use, No Respiratory Distress Cardiovascular: Regular Rate, Rhythm, No Murmur Gastrointestinal: distended, guarding (midline), tenderness (RUQ, but primarily at incision site), other (incision is c/d/i) Extremity: Non Tender, No Calf Tenderness Skin: Damp, Diaphoresis Assessment/Plan Assessment/Plan Assessment/Plan S/P Ex lap with SBR and Ileo-cecal anastomosis for Retroperitoneal abscess probable Bowel Perforation POD#3 Post-operative ileus Bacteremia - Strep viridans Crohn's disease Elevated Creatinine Leukocytosis Plan NPO, continue Zosyn, IVF, Pain control - will add IV meds. Pt encouraged to ambulate more and use IS. Will try coffee and then dulcolax suppository if that doesn't work. Will order labs and Acute abd series. Supervisory-Addendum Brief Verification & Attestation Participated in pt care: history, MDM, physical Personally performed: exam, history, MDM, supervision of care Care discussed with: Medical Student Procedures: n/a Verification and Attestation of Medical Student E/M Service A medical student performed and documented this service. I then reviewed and verified all information documented by the medical student and made modifications to such information, when appropriate. I personally performed a physical exam, medical decision making and then discussed any differences between the notes and made revisions as necessary to create one note. Neo Wylie , 04/16/22 , 14:15 RAMSES THOMAS Apr 16, 2022 07:15 NEO WYLIE DO Apr 16, 2022 14:15
--- NOTE | 2022-04-16 07:40 | Physician Query Clarification ---
PQ-Uncertain Diagnosis Admission/Discharge Admission Date: Apr 13, 2022 at 17:50 Discharge Date: Dr. Wylie, The medical record reflects the following clinical scenario: History/Risk Factors: Intraabdominal abscess, chrohn's disease Clinical Findings: T 36.0, P 92, R 20, WBC 23.6, lactic acid 0.99 Treatment: IV Piperacillin Question: Is sepsis a clinically valid diagnosis? Sepsis was documented in the ER record with no further documentation in the medical record. Please document a response in Progress Note or Discharge Summary. 1. Yes, clinically valid, condition resolved. 2. No, condition ruled out. 3. Other, with explanation of clinical findings. 4. Undetermined, no explanation for clinical findings. PHYSICIAN RESPONSE Diagnosis clinically valid: Other, explanation/clinical finding Explanation of clincal finding Yes, he had sepsis and actually had Bacteremia that was proven with 2 positive blood cultures and has been on IV ABX since admission. These ABX cover the bacteria found in his blood. In responding to this query, please exercise your independent professional judgment. The purpose of this communication is to more accurately reflect the complexity of your patients condition. The fact that a question is asked does not imply that any particular answer is desired or expected. Thank you for your timely response to this clarification. Requestors name: Anibal THIS PHYSICIAN QUERY FORM IS A PERMANENT PART OF THE MEDICAL RECORD ANIBAL VALDES Apr 16, 2022 07:40 ANGELO WYLIE DO Apr 17, 2022 11:31
[2022-04-16] MEDS: PANTOPRAZOLE 40 MG (PROTONIX) VIAL IVP SCH (08:38)
[2022-04-16] MEDS: ENOXAPARIN 40 MG/0.4 ML (LOVENOX) SYR SC SCH ×2 (08:38→19:50)
[2022-04-16] MEDS: morphine INJ 4 MG/ML 1 ML (VIAL/SYRINGE) IVP PRN ×3 (08:39→23:36)
[2022-04-16] MEDS ORDERED: BISACODYL 10 MG SUPP (DULCOLAX) PR NR (14:00)
[2022-04-16 14:59] LABS: BASOPHILS % (AUTO) 0 % (0-10); EOSINOPHILS % (AUTO) 0 % (0-10); HEMATOCRIT 35 % (40-54); HEMOGLOBIN 11.5 g/dL (13.3-17.7); LYMPHOCYTES # (AUTO) 0.4 10^3/uL (1.0-4.0); LYMPHOCYTES % (AUTO) 5 % (12-44); MEAN CORPUSCULAR HEMOGLOBIN 32 pg (25-34); MEAN CORPUSCULAR HGB CONC 33 g/dL (32-36); MEAN CORPUSCULAR VOLUME 96 fL (80-99); MEAN PLATELET VOLUME 10.1 fL (9.0-12.2); MONOCYTES # (AUTO) 0.8 10^3/uL (0.0-1.0); MONOCYTES % (AUTO) 10 % (0-12); NEUTROPHILS # (AUTO) 6.5 10^3/uL (1.8-7.8); NEUTROPHILS % (AUTO) 84 % (42-75); PLATELET COUNT 305 10^3/uL (130-400); WHITE BLOOD COUNT 7.8 10^3/uL (4.3-11.0)
[2022-04-16 15:26] LABS: BILIRUBIN,TOTAL 0.9 MG/DL (0.1-1.0); CALCIUM 8.5 MG/DL (8.5-10.1); CREATININE SERUM 0.8 MG/DL (0.60-1.30); POTASSIUM 3.9 MMOL/L (3.6-5.0)
--- NOTE | 2022-04-16 17:01 | Diagnostic Imaging Report ---
EXAMINATION: Abdominal series and chest radiograph. HISTORY: Abdominal pain and distention. COMPARISON: 04/13/2022. FINDINGS: Heart size and pulmonary vasculature are normal. The lungs are clear without consolidation, pleural effusion, or pneumothorax. The osseous structures are intact. There is mild amount of gas and stool throughout the colon. There are mildly dilated air- and fluid-filled loops of small bowel with a few scattered air-fluid levels. Multiple surgical cm overlie the midline abdomen. The osseous structures are intact. IMPRESSION: Findings suggestive of small bowel obstruction or ileus. No acute abnormality in the chest. Dictated by: Dictated on workstation # [id number]
[2022-04-17] VITALS (7 sets, daily range): BP systolic 120–161; BP diastolic 76–83
[2022-04-17] MEDS: PIPERACILLIN SODIUM/TAZOBACTAM 4.5 GM in NS (IVPB) 100 ML IV SCH ×3 (05:02→19:53)
--- NOTE | 2022-04-17 08:38 | Progress Note - Surgery ---
YURIY THOMASNANoris Fuentes 04/17/22 0838: Subjective Date Seen by a Provider: Apr 17, 2022 Time Seen by a Provider: 07:58 Subjective/Events-last exam Pt is 51 yo M on POD#3 from small bowel resection. Pt is pleasant, comfortably lying in bed and in no distress. States that he feels much better today and that his pain has come down to a 7-8/10. Mentions he has not received pain medications for quite some time and does not feel that he needs them at the moment. His abdomen is feeling less distended. States he has been very flatulent and had 4-5 small bowels movements since yesterday. Notes the suppository worked really well. Pt is still NPO but has been eating ice chips. He would like to move back to clear liquid diet. Has been ambulating hallways and using incentive spirometer. Review of Systems General: No Chills; Fatigue HEENT: No Head Aches, No Visual Changes, No Dysphasia Pulmonary: No Dyspnea, No Cough Cardiovascular: No: Chest Pain, Palpitations, Lt Headedness Gastrointestinal: Abdominal Pain (some pain to palpation in LLQ and at midline abdomen at incision site); No: Nausea, Vomiting Genitourinary: No Dysuria, No Hematuria Musculoskeletal: shoulder pain (pt states he simply hurts all over), back pain (Pt states he always has back pain and he hurts from being in bed so much) Neurological: No: Weakness, Numbness Objective Exam Vital Signs Date Time Temp Pulse Resp B/P (MAP) Pulse Ox O2 Delivery O2 Flow Rate FiO2 04/17/22 07:45 36.7 69 18 135/79 (97) 93 Room Air 04/17/22 04:25 37.2 65 18 146/79 (101) 95 Room Air 04/16/22 23:34 37.2 69 18 157/92 (113) 94 Room Air 04/16/22 19:55 92 Room Air 04/16/22 19:20 Room Air 04/16/22 19:12 37.3 72 18 140/88 (105) 92 Room Air 04/16/22 16:05 37.1 77 20 134/80 (98) 93 Room Air 04/16/22 11:23 36.8 60 18 133/84 (100) 93 Room Air I & O 04/17/22 07:00 Intake Total 240 ml Balance 240 ml Capillary Refill : Less Than 3 Seconds General Appearance: No Apparent Distress, WD/WN, Obese HEENT: PERRL/EOMI, Moist Mucous Membranes Neck: Non Tender, Supple Respiratory: Chest Non Tender, Lungs Clear, Normal Breath Sounds, No Accessory Muscle Use, No Respiratory Distress Cardiovascular: Regular Rate, Rhythm, No Murmur Peripheral Pulses: 2+ Dorsalis Pedis (R), 2+ Left Dors-Pedis (L), 2+ Radial Pulses (R), 2+ Radial Pulses (L) Gastrointestinal: soft, guarding (midline), tenderness (LLQ, but primarily at incision site), other (incision is c/d/i) Extremity: Non Tender, No Calf Tenderness Neurologic/Psychiatric: Alert, Oriented x3, fiction and nonfiction prose writer II-XII Norm as Tested Skin: No Cool; Damp Results Lab Laboratory Tests 04/16/22 14:49: White Blood Count 7.8, Red Blood Count 3.64L, Hemoglobin 11.5#L, Hematocrit 35L, Mean Corpuscular Volume 96, Mean Corpuscular Hemoglobin 32, Mean Corpuscular Hemoglobin Concent 33, Red Cell Distribution Width 12.2, Platelet Count 305, Mean Platelet Volume 10.1, Immature Granulocyte % (Auto) 1, Neutrophils (%) (Auto) 84H, Lymphocytes (%) (Auto) 5L, Monocytes (%) (Auto) 10, Eosinophils (%) (Auto) 0, Basophils (%) (Auto) 0, Neutrophils # (Auto) 6.5, Lymphocytes # (Auto) 0.4L, Monocytes # (Auto) 0.8, Eosinophils # (Auto) 0.0, Basophils # (Auto) 0.0, Immature Granulocyte # (Auto) 0.1, Sodium Level 137, Potassium Level 3.9, Chloride Level 101, Carbon Dioxide Level 27, Anion Gap 9, Blood Urea Nitrogen 19H, Creatinine 0.80, Estimat Glomerular Filtration Rate 108, BUN/Creatinine Ratio 24, Glucose Level 109H, Calcium Level 8.5, Corrected Calcium 9.3, Total Bilirubin 0.9, Aspartate Amino Transf (AST/SGOT) 49H, Alanine Aminotransferase (ALT/SGPT) 53, Alkaline Phosphatase 122, Total Protein 6.0L, Albumin 3.0L Microbiology 04/13/22 Blood Culture - Final, Complete Streptococcus intermedius Radiology NAME: MYLA HUNTLEY [facility] REC#: [id number] PT STATUS: ADM IN : 1970 PHYSICIAN: ANGELO DUARTE DO ADMIT DATE: 04/13/22/ Signed Date of Exam:04/16/22 ACUTE ABD SERIES EXAMINATION: Abdominal series and chest radiograph. HISTORY: Abdominal pain and distention. COMPARISON: 04/13/2022. FINDINGS: Heart size and pulmonary vasculature are normal. The lungs are clear without consolidation, pleural effusion, or pneumothorax. The osseous structures are intact. There is mild amount of gas and stool throughout the colon. There are mildly dilated air- and fluid-filled loops of small bowel with a few scattered air-fluid levels. Multiple surgical cm overlie the midline abdomen. The osseous structures are intact. IMPRESSION: Findings suggestive of small bowel obstruction or ileus. No acute abnormality in the chest. Dictated by: Dictated on workstation # [id number] Dict: 04/16/222 Trans: 04/16/22 1726 [id number] Interpreted by: JAIRON GU DO Electronically signed by: JAIRON GU DO 04/16/22 1726 Assessment/Plan Assessment/Plan Assessment/Plan S/P Ex lap with SBR and Ileo-cecal anastomosis for Retroperitoneal abscess probable Bowel Perforation POD#4 Post-operative ileus Bacteremia - Strep viridans Crohn's disease Elevated Creatinine - resolved Leukocytosis Plan NPO consider advancing diet, continue Zosyn, IVF, Pain control - will add IV meds. Pt encouraged to ambulate more and use IS. ANGELO DUARTE DO 04/17/22 1127: Subjective Time Seen by a Provider: 10:49 Subjective/Events-last exam Pt seen and examined, states he is feeling much better now. He wants to try and eat more. Pain is almost gone, he had multiple BMs last night. Review of Systems General: No Chills Pulmonary: No Dyspnea, No Cough Cardiovascular: No: Chest Pain, Palpitations Gastrointestinal: Abdominal Pain (some pain to palpation in LLQ and at midline abdomen at incision site); No: Nausea, Vomiting Objective Exam General Appearance: No Apparent Distress, Obese HEENT: PERRL/EOMI, Moist Mucous Membranes Respiratory: Chest Non Tender, Lungs Clear, Normal Breath Sounds, No Accessory Muscle Use, No Respiratory Distress Cardiovascular: Regular Rate, Rhythm, No Murmur Gastrointestinal: soft, tenderness (primarily at incision site), other (incision is c/d/i, however there is some erythema around base of incision - looks like a cellulitis) Assessment/Plan Assessment/Plan Assessment/Plan S/P Ex lap with SBR and Ileo-cecal anastomosis for Retroperitoneal abscess probable Bowel Perforation POD#4 Post-operative ileus Bacteremia - Strep viridans Crohn's disease Elevated Creatinine - resolved Leukocytosis Plan Will start clears and advance diet to soft for dinner if he tolerates, continue Zosyn, IVF, Pain control - will add IV meds. Pt encouraged to ambulate more and use IS. Supervisory-Addendum Brief Verification & Attestation Participated in pt care: history, MDM, physical Personally performed: exam, history, MDM, supervision of care Care discussed with: Medical Student Procedures: n/a Verification and Attestation of Medical Student E/M Service A medical student performed and documented this service. I then reviewed and verified all information documented by the medical student and made modifications to such information, when appropriate. I personally performed a physical exam, medical decision making and then discussed any differences between the notes and made revisions as necessary to create one note. Angelo Duarte , 04/17/22 , 11:29 RAMSES THOMAS Apr 17, 2022 08:38 ANGELO DUARTE DO Apr 17, 2022 11:27
[2022-04-17] MEDS: PANTOPRAZOLE 40 MG (PROTONIX) VIAL IVP SCH (09:08)
[2022-04-17] MEDS: ENOXAPARIN 40 MG/0.4 ML (LOVENOX) SYR SC SCH ×2 (09:08→19:54)
[2022-04-17] MEDS: LACTATED RINGERS 1,000 ML IV SCH ×2 (09:14→17:12)
[2022-04-17] MEDS: HYDROcodone/APAP 5 MG/325 MG (LORTAB) TAB PO PRN (19:54)
[2022-04-18 03:46] VITALS: BP 138/84
[2022-04-18] MEDS: PIPERACILLIN SODIUM/TAZOBACTAM 4.5 GM in NS (IVPB) 100 ML IV SCH ×2 (03:48→12:35)
[2022-04-18 07:44] VITALS: BP 143/78
[2022-04-18] MEDS: ENOXAPARIN 40 MG/0.4 ML (LOVENOX) SYR SC SCH (07:53)
[2022-04-18] MEDS: HYDROcodone/APAP 5 MG/325 MG (LORTAB) TAB PO PRN ×2 (07:54→14:56)
[2022-04-18] MEDS: PANTOPRAZOLE 40 MG (PROTONIX) VIAL IVP SCH (07:54)
--- NOTE | 2022-04-18 10:43 | Progress Note - Surgery ---
RAMSES THOMAS 04/18/22 1043: Subjective Date Seen by a Provider: Apr 18, 2022 Time Seen by a Provider: 09:46 Subjective/Events-last exam This morning pt is in pleasant mood and no acute distress. States his pain is back up to 8-9/10 and has felt like 10/10 a couple of times since yesterday. Mention he has one pain pill yesterday and one this morning. Last night he stayed on clear liquid diet and this morning moved to soft foods eating eggs, sausage, and burkinan toast. Has been voiding but not had BM since yesterday. Pt has been passing gas and belching. Notes he feels more bloated and has been having episodes of explosive diarrhea. Ambulating hallways and using IS. Refused Lovenox this morning stating he did not need it since he has been moving. Review of Systems General: No Chills HEENT: No Head Aches, No Visual Changes Pulmonary: No Dyspnea, No Cough Cardiovascular: No: Chest Pain, Palpitations Gastrointestinal: Abdominal Pain (at incision site), Diarrhea, Other (Bloating); No: Nausea, Vomiting, Constipation Genitourinary: No Dysuria, No Hematuria Musculoskeletal: No: shoulder pain, back pain Neurological: No: Weakness, Numbness Objective Exam Vital Signs Date Time Temp Pulse Resp B/P (MAP) Pulse Ox O2 Delivery O2 Flow Rate FiO2 04/18/22 07:44 36.8 97 18 143/78 (99) 96 04/18/22 07:25 96 Room Air 04/18/22 03:46 36.8 64 16 138/84 (102) 96 Room Air 04/17/22 23:12 36.7 59 16 120/76 (91) 95 Room Air 04/17/22 20:00 Room Air 04/17/22 19:19 36.9 66 18 126/77 (93) 96 Room Air 04/17/22 15:59 36.9 60 20 161/76 (104) 96 Room Air 04/17/22 11:16 36.9 61 18 148/83 (104) 96 Room Air I & O 04/18/22 07:00 Intake Total 2480 ml Balance 2480 ml Capillary Refill : Less Than 3 Seconds General Appearance: No Apparent Distress, Obese HEENT: PERRL/EOMI, Moist Mucous Membranes Neck: Non Tender, Supple Respiratory: Chest Non Tender, Lungs Clear, Normal Breath Sounds, No Accessory Muscle Use, No Respiratory Distress Cardiovascular: Regular Rate, Rhythm, No Murmur Peripheral Pulses: 2+ Dorsalis Pedis (R), 2+ Left Dors-Pedis (L), 2+ Radial Pulses (R), 2+ Radial Pulses (L) Gastrointestinal: soft, distended (slightly (more than yesterday)), tenderness (primarily at incision site), other (incision is c/d/i, however there is some erythema around base of incision - looks like a cellulitis) Extremity: Non Tender, No Calf Tenderness Neurologic/Psychiatric: Alert, Oriented x3, fisheries officer II-XII Norm as Tested Skin: No Cool; Damp Results Lab Microbiology 04/13/22 Blood Culture - Final, Complete Streptococcus intermedius Assessment/Plan Assessment/Plan Assessment/Plan S/P Ex lap with SBR and Ileo-cecal anastomosis for Retroperitoneal abscess probable Bowel Perforation POD#5 Post-operative ileus Bacteremia - Strep viridans Crohn's disease Elevated Creatinine - resolved Leukocytosis Plan Monitor toleration of soft diet, continue Zosyn, IVF, Pain control - will add IV meds. Pt encouraged to ambulate more and use IS. NEO WYLIE DO 04/18/22 1345: Subjective Time Seen by a Provider: 12:19 Subjective/Events-last exam Pt seen and examined, had just come out of bathroom. He states he is still having pain, but thinks it is better. He also thinks he has some bloating, which goes away when he has BM. +BM and flatus. He is eating small amounts. He wants to go home. Review of Systems General: No Chills Pulmonary: No Dyspnea, No Cough Cardiovascular: No: Chest Pain, Palpitations Gastrointestinal: Abdominal Pain (at incision site), Diarrhea, Other (Bloating); No: Nausea, Vomiting Musculoskeletal: shoulder pain Objective Exam General Appearance: No Apparent Distress, Obese HEENT: Moist Mucous Membranes Respiratory: Chest Non Tender, Lungs Clear, Normal Breath Sounds, No Accessory Muscle Use, No Respiratory Distress Cardiovascular: Regular Rate, Rhythm, No Murmur Gastrointestinal: soft, distended (slightly (more than yesterday)), tenderness (primarily at incision site), other (incision is c/d/i, however there is some erythema around base of incision - looks improved compared to yesterday) Extremity: Non Tender, No Calf Tenderness Neurologic/Psychiatric: Alert, Oriented x3 Assessment/Plan Assessment/Plan Assessment/Plan S/P Ex lap with SBR and Ileo-cecal anastomosis for Retroperitoneal abscess probable Bowel Perforation POD#5 Post-operative ileus Bacteremia - Strep viridans Crohn's disease Elevated Creatinine - resolved Leukocytosis Plan I offered to keep pt at least another day, I am concerned about his bloating. However, he said "what is the difference between a day or two, here vs. home?" I told pt to take it easy with soft diet; will continue ABX at home, along with pain meds and some Zofran. Pt encouraged to ambulate more and use IS. Supervisory-Addendum Brief Verification & Attestation Participated in pt care: history, MDM, physical Personally performed: exam, history, MDM, supervision of care Care discussed with: Medical Student Procedures: n/a Verification and Attestation of Medical Student E/M Service A medical student performed and documented this service. I then reviewed and ve rified all information documented by the medical student and made modifications to such information, when appropriate. I personally performed a physical exam, medical decision making and then discussed any differences between the notes and made revisions as necessary to create one note. Neo Wylie , 04/18/22 , 13:45 RAMSES THOMAS Apr 18, 2022 10:43 NEO WYLIE DO Apr 18, 2022 13:45
[2022-04-18 11:24] VITALS: BP 136/78
[2022-04-18] MEDS ORDERED: AMOX-355 PO ×2 (13:56→14:53)
[2022-04-18] MEDS ORDERED: ACHD5005 PO ×2 (13:56→14:53)
[2022-04-18] MEDS ORDERED: ONDA4TAB11 SL ×2 (13:56→14:53)
--- NOTE | 2022-04-18 13:58 | Discharge Inst-Surgical ---
Discharge Inst-Surgical Depart Medication/Instructions New, Converted or Re-Newed RX: Transmitted to Pharmacy Patient Instructions Follow up Appt: Make appointment for 1 week. [phone] Instructions: No lifting greater than 20 pounds. No strenuous activity. May shower in 24 hours, no tub bath or soaking. Use incentive spirometer at home as directed. No Smoking Skin/Wound Care: May remove bandages in am. You need to leave the cm in place and come in to clinic to have them removed. Symptoms to Report: Appetite Changes, Extremity Discoloration, Numbness/Tingling, Swelling Increased, Bleeding Excessive, Eyesight Changes, Pain Increased, Urine Color Change, Constipation(Persistent), Fever over 101 degree F, Pain/Pressure in chest, Urinating Difficulty, Cough Up/Vomit Blood, Heart Beat Irreg/Pounding, Pain/Pressure in jaw, Cramps in feet or legs, Lightheadedness, Pain/Pressure in shoulder, Diarrhea(Persistent), Memory Changes Suddenly, Questions/Concerns, Weight gain consecutive days, Dizziness/Fainting, Nausea/Vomiting, Shortness of Breath, Weight gain over 2 pounds If questions or concerns contact your physician Or seek help at emergency department. Activity Activity as Tolerated: Yes Activity Instructions: Avoid Stress to Incision Driving Instructions: No Driving/Refer to Dr. Pino Discharge Diet: No Restrictions (increased fluids and fiber) Diet After 24 Hours: Clear Liquid if Nauseous If Any Problems/Questions/Issu: Contact Your Physician, Go to Emergency Room Skin/Wound Care Infection Signs and Symptoms: Increased Redness, Foul Odor of Wound, Increased Drainage, Skin Itchy or Has a Rash, Increased Swelling, Temperature Above 101 F Bathing Instructions: Shower Stitches/[place]/Dermabond Dis: Care of ANGELO Bennett DO Apr 18, 2022 13:58
[2022-04-18 15:33] VITALS: BP 136/78
== END 2022-04-18 15:03 | disposition home or self-care (01) | DRG 853 ==
LOC: EDUNIT# 11:21 → ER 11:23 → SDC 15:48 → 4TH 17:50
PROVIDERS: ADMIT Surgery; ATTEND Surgery
PROC: 0DB80ZZ Excision of Small Intestine, Open Approach (ICD-10-PCS; principal; 2022-04-14)
PROC: 0WJG4ZZ Inspection of Peritoneal Cavity, Percutaneous Endoscopic Approach (ICD-10-PCS; 2022-04-14)
DX: A40.9 Streptococcal sepsis, unspecified (principal); K65.1 Peritoneal abscess; K50.914 Crohn's disease, unspecified, with abscess; K56.7 Ileus, unspecified; D72.829 Elevated white blood cell count, unspecified
CPT/HCPCS: 36415; 74022; 74177; 80053; 83605; 83690; 83735; 85007; 85025; 85027; 85610; 85652; 85730; 86141; 87040; 87077; 87181; 87186; 94640; 94664; 94760